=== PATIENT | female | born 1990 | race Caucasian/White ===

== ENCOUNTER → 2021-03-03 | Outpatient (CLI) | payer OTHER ==
--- NOTE | 2021-03-03 16:26 | RAD ---
Gastric Emptying Study Indication: Reason: REFLUX / Spl. Instructions: / History: Procedure: Anterior and posterior projection static images are obtained over the stomach following or al administration of 2 mCi of 99 M technetium sulfur colloid in a solid meal (egg, water, and toast). Time points include an immediate baseline, and 1, 2, 3, and 4 hours post ingestion. Findings: There is progressive emptying of the stomach on sequential images. Percentage retention at one hour is 80% (normal 34.8-91%). Two hours 63% (normal 2.7-60%). Three hours 40% (normal 0.5-28%). Four hours 13% (normal 0-10%). The calculated T1/2 of emptying is 150 minutes. 45-90 minutes is considered normal. IMPRESSION: There is moderate delayed gastric emptying. Electronically signed by: Edvin Jarvis MD (03/03/2021 4:23 PM) [id number]
== END ==
LOC: NM 09:20
PROVIDERS: ATTEND Internal Medicine Gastroenterology
DX: K21.9 Gastro-esophageal reflux disease without esophagitis (principal)
CPT/HCPCS: 78264; A9541

== ENCOUNTER 2021-07-06 19:16 | Emergency (ER) | payer OTHER ==
[~2021-07-06] VITALS: Ht 162.6 cm; Wt 62.7 kg
[2021-07-06] MEDS ORDERED: DEXAMETHASONE 4 MG TABLET PO ONE (19:45)
[2021-07-06] MEDS ORDERED: diphenhydrAMINE 50 MG/ML VIAL IVP ONE (20:00)
[2021-07-06] MEDS ORDERED: DEXAMETHASONE SOD PHOS 20 MG/5 ML VIAL. IV ONE (20:00)
[2021-07-06] MEDS ORDERED: FAMOTIDINE 20 MG/2 ML VIAL IVP ONE (20:00)
--- NOTE | 2021-07-06 20:09 | PHYS DOC ---
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 Reports she has been having "allergic reactions" ever since she received her Covid vaccination in October 2020. Took 4 puffs of her albuterol inhaler. Takes daily pepcid and xyzal. Was too frightened to use her EpiPen today, that her inserting machine operator at [facility] in [place] prescribed her. EMS did not recommend any epinephrine, gave benadryl. States she has similar reactions every 2 weeks after taking prednisone. Has a follow-up appointment with her inserting machine operator on the . Reports "I see so many ologists, I have to look up the allergists' name." Reports no associated head or neck swelling, drooling, strid or or sore throat. States she has never had any history of head or neck swelling, has never required any epinephrine or hospital admission for her allergic reactions. Reports rash has almost fully resolved and reports no current chest tightness/asthma flare up. Review of Systems: Review of Systems: Constitutional: Denies fever or chills. [] Eyes: Denies change in visual acuity. [] HENT: Denies nasal congestion or sore throat. [] Respiratory: Denies cough or shortness of breath. [] Cardiovascular: Denies chest pressure or heaviness, syncope or edema. [] GI: Denies abdominal pain, nausea, vomiting, bloody stools or diarrhea. [] : Denies dysuria or vaginal bleeding Musculoskeletal: Denies back pain or joint pain. [] Integument: Denies diaphoresis or desquamation Neurologic: Denies headache, neck stiffness, focal weakness or sensory changes. [] Endocrine: Denies polyuria or polydipsia. [] Lymphatic: Denies swollen glands. [] Psychiatric: Denies depression or anxiety. [] Heart Score: C/O Chest Pain: No Risk Factors: Risk Factors: DM, Current or recent (<one month) smoker, HTN, HLP, family history of CAD, obesity. Risk Scores: Score 0 - 3: 2.5% MACE over next 6 weeks - Discharge Home Score 4 - 6: 20.3% MACE over next 6 weeks - Admit for Clinical Observation Score 7 - 10: 72.7% MACE over next 6 weeks - Early Invasive Strategies Current Medications: Current Medications Medications (Trade) Dose Ordered Sig/Natividad Start Time Stop Time Status Last Admin Dose Admin Dexamethasone (Decadron) 10 mg 1X ONCE 07/06/21 19:45 07/06/21 19:48 DC Dexamethasone Sodium Phosphate (Decadron) 10 mg 1X ONCE 07/06/21 20:00 07/06/21 20:01 DC Diphenhydramine HCl (Benadryl) 25 mg 1X ONCE 07/06/21 20:00 07/06/21 20:01 DC Famotidine (Pepcid Vial) 20 mg 1X ONCE 07/06/21 20:00 07/06/21 20:01 DC Allergies: Allergies: Allergies Coded Allergies Type Severity Reaction Last Updated Verified meperidine Allergy Severe RESPIRATORY ISSUES 07/06/21 Yes Iodinated Contrast Media Allergy Intermediate 07/06/21 Yes aspirin Allergy Intermediate BRUISING 07/06/21 Yes gallium Allergy Intermediate 07/06/21 Yes Sulfa (Sulfonamide Antibiotics) Allergy Unknown HIVES 07/06/21 Yes amoxicillin Allergy Unknown HIVES 07/06/21 Yes Uncoded Allergies Type Severity Reaction Last Updated Verified MRI CONTRAST Adverse Reaction Severe BRONCHI SPASMS FLUID 07/06/21 Physical Exam: PE: Constitutional: Well developed, well nourished, no acute distress, non-toxic appearance. HENT: Normocephalic, atraumatic, no oropharyngeal edema Eyes: EOMI, conjunctiva normal, no discharge. Neck: Normal range of motion, supple, Cardiovascular: S1/2 present, regular rhythm Lungs & Thorax: Speaking in full sentences, bilateral equal chest rise, no tachypnea or increased work of breathing, no drooling/stridor Abdomen: soft, no tenderness, Skin: Warm, dry, no obvious urticarial rash - some prickly erythema over upper chest Extremities: No tenderness, no cyanosis, Neurologic: Alert and oriented X 3, normal motor function, normal sensory function, no focal deficits noted. [] Psychologic: Affect normal, judgement normal, mood normal. [] Current Patient Data: Vital Signs: Vital Signs Date Time Temp Pulse Resp B/P (MAP) Pulse Ox O2 Delivery O2 Flow Rate FiO2 07/06/21 19:25 97.8 96 22 145/87 96 97.8 EKG: EKG: [] Radiology/Procedures: Radiology/Procedures: [] Course & Med Decision Making: Course & Med Decision Making Pertinent Labs and Imaging studies reviewed. (See chart for details) Concern for mild allergic reaction with minimal rash in ED, protecting her airway with no head or neck swelling. Patient was observed in the ED with no exacerbation of her symptoms. On repeat exam, prickly erythema over upper chest is gone (appears like a sandpaper rash). No urticaria. Pt with auvi-q in ed and can demonstrate how to use it. Patient reports she does not need any refills of her Flovent or albuterol inhaler. Will prescribe 4 more days of steroids. Will discharge home with strict ED return precautions were given for head or neck swelling, drooling, stridor, difficulties breathing or worsening rash. Enco uraged urgent outpatient follow-up with PMD and pulmonology and allergy/immunology. Life-threatening processes were considered but are low suspicion at this time, given history, physical exam and ED workup. Pt was educated on all prescription medications and adverse effects. All patient's questions were answered and pt was stable at time of discharge. Life/limb-threatening differential includes but is not limited to, anaphylaxis, angioedema, shock, contrast induced allergic reaction, carcinoid syndrome, head/neck infection/sepsis, asthma exacerbation, or airway emergency. I have spoken with the patient and/or caregivers. I explained the patient's condition, diagnoses and treatment plan based on the information available to me at this time. I have answered the patient and/or caregiver's questions and addressed any concerns. The patient and/or caregivers have a good understanding of patient's diagnosis, condition and treatment plan as can be expected at this point. Vital signs have been stable. Patient's condition is stable and appropriate for discharge from the emergency department. Patient will pursue further outpatient evaluation with primary care physician or other designated or consulting physician as outlined in the discharge instructions. The patient and/or caregivers are agreeable to this plan of care and follow-up instructions have been explained in detail. The patient and/or caregivers have received these instructions in written form and have expressed an understanding of the discharge instructions. The patient and/or caregivers are aware that any significant change of condition or worsening of symptoms should prompt immediate return to this or the closest emergency department or call to 1Grayson Colón Disclaimer: [place] Disclaimer: This electronic medical record was generated, in whole or in part, using a voice recognition dictation system. Departure Departure Impression: Primary Impression: Allergic reaction Disposition: HOME / SELF CARE / HOMELESS Condition: STABLE Referrals: SNEHA GRULLON APRN (PCP) Follow-up with your primary care physician in 24 to 48 hours OR FOLLOW UP WITH FAMILY MEDICINE: [address] [place] [address] Patient Instructions: Anaphylactic Reaction, Hives Additional Instructions: [facility] - for definitive management [facility] Call for appointment [phone] [facility] on the [facility] [address] [place] [address], [address] (Address for directions and navigation systems: [address] [place] [address]) FOLLOW UP WITH PULMONOLOGY: FOR DEFINITIVE MANAGEMENT [facility] [address] [place] [address] EMERGENCY DEPARTMENT GENERAL DISCHARGE INSTRUCTIONS Thank you for coming to [facility] Emergency Department (ED) today and trusting us with you care. We trust that you had a positive experience in our Emergency Department. If you wish to speak to the department management, you may call the Director at [phone]. YOUR FOLLOW UP INSTRUCTIONS ARE FOLLOWS: 1. Do you have a private Doctor? If you do not have a private doctor, please ask for a resource list of physicians or clinics that may be able to assist you with follow up care. 2. The Emergency Physicain has interpreted your x-rays. The X-Ray specialist will also review them. If there is a change in the findings, you will be notified in 48 hours when at all possible. 3. A lab test or culture has been done, your results will be reviewed and you will be notified if you need a change in treatment. ADDITIONAL INSTRUCTIONS AND INFORMATION: 1. Your care today has been supervised by a physician who is specially trained in emergency care. Many problems require more than one evaluation for a complete diagnosis and treatment. We recommend that you schedule your follow up appointment as recommended to ensure complete treatment of you illness or injury. If you are unable to obtain follow up care and continue to have a problem, or if your condition worsens, we recommend that you return to the ED. 2. We are not able to safely determine your condition over the phone nor are we able to give sound medical advice over the phone. For these safety reasons, if you call for medical advice we will ask you to come to the ED for further evaluation. 3. If you have any questions regarding these discharge instructions please call the ED at [phone]. SAFETY INFORMATION: In the interest of safety, wellness, and injury prevention; we encourage you to wear your sealbelt, if you smoke; quite smoking, and we encourage family to use a protective helmet for bicycling and other sporting events that present an increased risk for head injury. IF YOUR SYMPTOMS WORSEN OR NEW SYMPTOMS DEVELOP, OR YOU HAVE CONCERNS ABOUT YOUR CONDITION; OR IF YOUR CONDITION WORSENS WHILE YOU ARE WAITING FOR YOUR FOLLOW UP APPOINTMENT; EITHER CONTACT YOUR PRIMARY CARE DOCTOR, THE PHYSICIAN WHOSE NAME AND NUMBER YOU WERE GIVEN, OR RETURN TO THE ED IMMEDIATELY. Scripts Prednisone (PREDNISONE) 20 Mg Tablet 2 TAB PO DAILY, #4 TAB Prov: CHRISTEN GUEVARA DO 07/06/21 CHRISTEN GUEVARA DO Jul 06, 2021 20:09
[2021-07-06] MEDS ORDERED: PRED20TA PO (22:21)
[2021-07-06 22:35] VITALS: BP 133/77
== END 2021-07-06 22:40 | disposition home or self-care (01) ==
LOC: ER 19:16
DX: T78.40XA Allergy, unspecified, initial encounter (principal); Z88.1 Allergy status to other antibiotic agents; Z88.2 Allergy status to sulfonamides; Z91.041 Radiographic dye allergy status; Z88.8 Allergy status to other drugs, medicaments and biological substances
CPT/HCPCS: 82962; 96374; 96375; 99285; J1100; J1200; J3490

== ENCOUNTER 2021-08-24 20:15 | Emergency (ER) | payer OTHER ==
[~2021-08-24] VITALS: Ht 162.6 cm; Wt 62.0 kg
[~2021-08-24 20:15] MED LIST: PRED20TA PO
[2021-08-24] MEDS ORDERED: ACETAMINOPHEN 325 MG TABLET. PO ONE (23:45)
--- NOTE | 2021-08-25 00:01 | PHYS DOC ---
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, CHIARI MALFORMA Past Surgical History: Cholecystectomy, Other Additional Past Surgical Histo: EAR TUBES, BONE TUMOR, LEFT EAR DRUM, LASER INNER EAR, CHIARI MALFOR, PIT T Smoking Status: Never Smoker Alcohol Use: Occasionally General Adult EDM: Chief Complaint: LOWER EXT PAIN HPI: HPI: 30-year-old female past medical history of celiac disease, Arnold-Chiari malformation and prediabetes presents to the ED with complaints of right thigh pain described as "cramping," that has been intermittent for the past week and a half, stating she may have injured it at the gym but does not recall any blunt trauma or abuse. Patient had an unremarkable stress test at [facility] on 08/21. Is requesting IM Toradol. Patient denies any fluid losses, known nausea, vomiting or diarrhea. Is concerned for a blood clot in her leg given because she is on control. States she bruises easily because she takes childrens ibuprofen, 15mg every 6 hours. Reports dark stools but denies any melena, hematochezia, leg swelling, hemoptysis, chest pain or dyspnea. Review of Systems: Review of Systems: Constitutional: Denies fever or chills. [] Eyes: Denies change in visual acuity. [] HENT: Denies nasal congestion or sore throat. [] Respiratory: Denies cough or shortness of breath or hemoptysis Cardiovascular: Denies chest pain or edema. [] GI: Denies abdominal pain, nausea, vomiting, bloody stools or diarrhea. [] : Denies dysuria or vaginal bleeding Musculoskeletal: Denies back pain or joint swelling/warmth Integument: Denies rash or diaphoresis Neurologic: Denies headache, focal weakness or sensory changes. [] Endocrine: Denies polyuria or polydipsia. [] Lymphatic: Denies swollen glands. [] Psychiatric: Denies depression or anxiety. [] Heart Score: C/O Chest Pain: No Risk Factors: Risk Factors: DM, Current or recent (<one month) smoker, HTN, HLP, family history of CAD, obesity. Risk Scores: Score 0 - 3: 2.5% MACE over next 6 weeks - Discharge Home Score 4 - 6: 20.3% MACE over next 6 weeks - Admit for Clinical Observation Score 7 - 10: 72.7% MACE over next 6 weeks - Early Invasive Strategies Current Medications: Current Medications Medications (Trade) Dose Ordered Sig/Natividad Start Time Stop Time Status Last Admin Dose Admin Acetaminophen (Tylenol) 650 mg 1X ONCE 08/24/21 23:45 08/24/21 23:46 DC Allergies: Allergies: Allergies Coded Allergies Type Severity Reaction Last Updated Verified Gadolinium-Containing Contrast Medi Allergy Severe BRONCHOSPASM 08/24/21 Yes meperidine Allergy Severe RESPIRATORY ISSUES 07/06/21 Yes Iodinated Contrast Media Allergy Intermediate 07/06/21 Yes Sulfa (Sulfonamide Antibiotics) Allergy Intermediate HIVES 08/24/21 Yes amoxicillin Allergy Intermediate HIVES 08/24/21 Yes aspirin Allergy Intermediate BRUISING 07/06/21 Yes gallium Allergy Intermediate 07/06/21 Yes Physical Exam: PE: Constitutional: Well developed, well nourished, no acute distress, non-toxic appearance. HENT: Normocephalic, atraumatic, Eyes: EOMI, conjunctiva normal, no discharge. Neck: Normal range of motion, supple, Cardiovascular: S1/2 present, regular rhythm Lungs & Thorax: Speaking in full sentences, bilateral equal chest rise, no tachypnea or increased work of breathing Abdomen: soft, no tenderness, Skin: Warm, dry, no erythema, no rash. [] Extremities: No tenderness, no cyanosis, no unilateral lower extremity edema, normal right knee and right ankle exam with full range of motion, DP/PT pulses intact, no hip pain, multiple superficial bruises over patient's anterior lower extremities with yellow in coloration-denies any repeat blood trauma Neurologic: Alert and oriented X 3, normal motor function, normal sensory function, no focal deficits noted. [] Psychologic: Affect normal, judgement normal, mood normal. [] Current Patient Data: Labs: Laboratory Tests Test 08/24/21 22:28 POC Urine HCG, Qualitative Hcg negative (Negative) Vital Signs: Vital Signs Date Time Temp Pulse Resp B/P (MAP) Pulse Ox O2 Delivery O2 Flow Rate FiO2 08/24/21 22:47 98.4 70 16 159/105 (123) 100 Room Air 98.4 EKG: EKG: [] Radiology/Procedures: Radiology/Procedures: IMAGING REPORT Signed PATIENT: ASHKAN YANEZ EACCOUNT: [id number] : 1990 LOCATION: ER AGE: 30 SEX: F EXAM STATUS: REG ER ORD. PHYSICIAN: CHRISTEN GUEVARA DO REASON: right thigh cramping, r/o dvt on obcp PROCEDURE: VENOUS LOWER EXTREMITY RIGHT Examination: Right Lower Extremity Venous Doppler Ultrasound History: Right thigh cramping Comparison: None Procedure: Pena scale, color flow 2D and spectal waveform analysis images are obtained with and without compression in the area of the common femoral vein, superficial femoral vein - femoral vein junction, main femoral vein (superficial femoral vein) and popliteal vein. Veins of the proximal calf are also imaged. Findings: There is normal duplex flow, color flow and compressibility of all visualized vein segments. No evidence of deep venous thrombus is present. Impression: No evidence of DVT in the right lower extremity venous system. Electronically signed by: Estevan Hensley MD (08/25/2021 12:33 AM) [id number] DICTATED and SIGNED BY: ESTEVAN HENSLEY MD DATE: 08/25/21 [id number] 0 IMAGING REPORT Signed PATIENT: ASHKAN YANEZ EACCOUNT: [id number] : 1990 LOCATION: ER AGE: 30 SEX: F EXAM STATUS: DEP ER ORD. PHYSICIAN: CHRISTEN GUEVARA DO REASON: distal thigh pain 16 PROCEDURE: KNEE RIGHT 3V Examination: 2 views of the right femur and 3 views of the right knee HISTORY: History of thigh pain COMPARISON: None available FINDINGS: The right femoral head is within the acetabulum. The visualized femur grossly appears unremarkable. The alignment of the knee joint grossly appears unremarkable. There is no acute fracture or dislocation. IMPRESSION: 1. No acute osseous findings. Electronically signed by: Estevan Hensley MD (08/25/2021 6:48 AM) [id number] DICTATED and SIGNED BY: ESTEVAN HENSLEY MD DATE: 08/25/21 [id number] 0 Course & Med Decision Making: Course & Med Decision Making Pertinent Labs and Imaging studies reviewed. (See chart for details) Concern for right distal thigh pain with no external signs of trauma or deformity, no lateral leg swelling. X-rays did not reveal any obvious fracture. No lower extremity DVT on ultrasound on imaging. Labs with no signs of thrombocytopenia or anemia. Patient hemodynamically stable. Consider repeat ultrasound 1 week if symptoms persist. Bruising to the lower extremities appears old/chronic. Patient with no melena or hematochezia. Will discharge home with strict ED return precautions were given for chest pain, dyspnea, hemoptysis or unilateral leg swelling. Encouraged urgent outpatient follow-up with PMD. Life-threatening processes were considered but are low suspicion at this time, given history, physical exam and ED workup. Pt was educated on all prescription medications and adverse effects. All patient's questions were answered and pt was stable at time of discharge. Life/limb-threatening differential includes but is not limited to, trauma (fracture, dislocation, laceration, compartment syndrome, tendon or ligament injury), neurovascular injury or deficitcva/tia, infection (osteomyelitis, abscess, cellulitis, septic arthritis, necrotizing fasciitis), deep vein thrombosis, renal/cardiac/liver disease, medication adverse effect, lymphedema/anasarca, vascular insufficiency or malignancy, I have spoken with the patient and/or caregivers. I explained the patient's condition, diagnoses and treatment plan based on the information available to me at this time. I have answered the patient and/or caregiver's questions and addressed any concerns. The patient and/or caregivers have a good understanding of patient's diagnosis, condition and treatment plan as can be expected at this point. Vital signs have been stable. Patient's condition is stable and appropriate for discharge from the emergency department. Patient will pursue further outpatient evaluation with primary care physician or other designated or consulting physician as outlined in the discharge instruc tions. The patient and/or caregivers are agreeable to this plan of care and follow-up instructions have been explained in detail. The patient and/or caregivers have received these instructions in written form and have expressed an understanding of the discharge instructions. The patient and/or caregivers are aware that any significant change of condition or worsening of symptoms should prompt immediate return to this or the closest emergency department or call to 911. [place] Disclaimer: [place] Disclaimer: This electronic medical record was generated, in whole or in part, using a voice recognition dictation system. Departure Departure Impression: Primary Impression: Pain in right thigh Additional Impression: Superficial bruising of lower leg Disposition: HOME / SELF CARE / HOMELESS Condition: STABLE Referrals: SNEHA GRULLON APRN (PCP) Follow-up with your primary care physician in 24 to 48 hours OR FOLLOW UP WITH FAMILY MEDICINE: [address] [place] [address] Patient Instructions: Contusions-SportsMed, Musculoskeletal Pain Additional Instructions: EMERGENCY DEPARTMENT GENERAL DISCHARGE INSTRUCTIONS Thank you for coming to [facility] Emergency Department (ED) today and trusting us with you care. We trust that you had a positive experience in our Emergency Department. If you wish to speak to the department management, you may call the Director at [phone]. YOUR FOLLOW UP INSTRUCTIONS ARE FOLLOWS: 1. Do you have a private Doctor? If you do not have a private doctor, please ask for a resource list of physicians or clinics that may be able to assist you with follow up care. 2. The Emergency Physicain has interpreted your x-rays. The X-Ray specialist will also review them. If there is a change in the findings, you will be notified in 48 hours when at all possible. 3. A lab test or culture has been done, your results will be reviewed and you will be notified if you need a change in treatment. ADDITIONAL INSTRUCTIONS AND INFORMATION: 1. Your care today has been supervised by a physician who is specially trained in emergency care. Many problems require more than one evaluation for a complete diagnosis and treatment. We recommend that you schedule your follow up appointment as recomme nded to ensure complete treatment of you illness or injury. If you are unable to obtain follow up care and continue to have a problem, or if your condition worsens, we recommend that you return to the ED. 2. We are not able to safely determine your condition over the phone nor are we able to give sound medical advice over the phone. For these safety reasons, if you call for medical advice we will ask you to come to the ED for further evaluation. 3. If you have any questions regarding these discharge instructions please call the ED at [phone]. SAFETY INFORMATION: In the interest of safety, wellness, and injury prevention; we encourage you to wear your sealbelt, if you smoke; quite smoking, and we encourage family to use a protective helmet for bicycling and other sporting events that present an increased risk for head injury. IF YOUR SYMPTOMS WORSEN OR NEW SYMPTOMS DEVELOP, OR YOU HAVE CONCERNS ABOUT YOUR CONDITION; OR IF YOUR CONDITION WORSENS WHILE YOU ARE WAITING FOR YOUR FOLLOW UP APPOINTMENT; EITHER CONTACT YOUR PRIMARY CARE DOCTOR, THE PHYSICIAN WHOSE NAME AND NUMBER YOU WERE GIVEN, OR RETURN TO THE ED IMMEDIATELY. Scripts Cyclobenzaprine Hcl (CYCLOBENZAPRINE HCL) 10 Mg Tablet 1 TAB PO TID, #21 TAB Prov: CHRISTEN GUEVARA DO 08/25/21 CHRSITEN GUEVARA DO Aug 25, 2021 00:01
--- NOTE | 2021-08-25 00:35 | RAD ---
Examination: Right Lower Extremity Venous Doppler Ultrasound History: Right thigh cramping Comparison: None Procedure: Pena scale, color flow 2D and spectal waveform analysis images are obtained with and witho ut compression in the area of the common femoral vein, superficial femoral vein - femoral vein juncti on, main femoral vein (superficial femoral vein) and popliteal vein. Veins of the proximal calf are a lso imaged. Findings: There is normal duplex flow, color flow and compressibility of all visualized vein segments. No evide nce of deep venous thrombus is present. Impression: No evidence of DVT in the right lower extremity venous system. Electronically signed by: Estevan Hensley MD (08/25/2021 12:33 AM) [id number]
[2021-08-25 03:31] LABS: BASO % 1 % (0-3); EOS # 0.1 x10^3/uL (0.0-0.7); EOS % 3 % (0-3); HEMATOCRIT 38.4 % (36.0-47.0); HEMOGLOBIN 12.9 g/dL (12.0-15.5); LYMPH # 1.6 x10^3/uL (1.0-4.8); LYMPH % 31 % (24-48); MEAN CORPUSCULAR HEMOGLOBIN 29 pg (25-35); MEAN CORPUSCULAR HGB CONC 34 g/dL (31-37); MEAN CORPUSCULAR VOLUME 87 fL (79-100); MONO # 0.7 x10^3/uL (0.0-1.1); MONO % 13 % (0-9); NEUT # 2.8 x10^3/uL (1.8-7.7); NEUT % 53 % (31-73); PLATELET COUNT 283 x10^3/uL (140-400); RED BLOOD COUNT 4.41 x10^6/uL (3.50-5.40); RED CELL DISTRIBUTION WIDTH 14.2 % (11.5-14.5); WHITE BLOOD COUNT 5.2 x10^3/uL (4.0-11.0)
[2021-08-25 03:37] LABS: CALCIUM 8.9 mg/dL (8.5-10.1); GFR 64.7; POTASSIUM 3.7 mmol/L (3.5-5.1)
[2021-08-25 03:43] LABS: ALBUMIN 3.9 g/dL (3.4-5.0); ALBUMIN/GLOBULIN RATIO 1.2 (1.0-1.7); TOTAL BILIRUBIN 0.7 mg/dL (0.2-1.0); TOTAL PROTEIN 7.2 g/dL (6.4-8.2)
[2021-08-25] MEDS ORDERED: CYCL10TA19 PO (04:39)
[2021-08-25 04:40] VITALS: BP 141/92
--- NOTE | 2021-08-25 06:51 | RAD ---
Examination: 2 views of the right femur and 3 views of the right knee HISTORY: History of thigh pain COMPARISON: None available FINDINGS: The right femoral head is within the acetabulum. The visualized femur grossly appears unremarkable. T he alignment of the knee joint grossly appears unremarkable. There is no acute fracture or dislocatio n. IMPRESSION: 1. No acute osseous findings. Electronically signed by: Estevan Hensley MD (08/25/2021 6:48 AM) [id number]
== END 2021-08-25 04:50 | disposition home or self-care (01) ==
LOC: ER 20:15
DX: M25.561 Pain in right knee (principal); Z88.1 Allergy status to other antibiotic agents; S80.11XA Contusion of right lower leg, initial encounter; Z88.2 Allergy status to sulfonamides; Z88.6 Allergy status to analgesic agent; Z88.8 Allergy status to other drugs, medicaments and biological substances; Z91.041 Radiographic dye allergy status; X58.XXXA Exposure to other specified factors, initial encounter; Y93.89 Activity, other specified; Y92.89 Other specified places as the place of occurrence of the external cause; Y99.8 Other external cause status
CPT/HCPCS: 36415; 73552; 73562; 80053; 81025; 85025; 93971; 99285-25

== ENCOUNTER 2021-11-03 23:45 | Emergency (ER) | payer OTHER ==
[~2021-11-03 23:45] MED LIST changes: +CYCL10TA19 PO
== END 2021-11-04 02:44 | disposition left against medical advice (07) ==
LOC: ER 23:45
DX: T78.40XA Allergy, unspecified, initial encounter (principal); Z53.21 Procedure and treatment not carried out due to patient leaving prior to being seen by health care provider; X58.XXXA Exposure to other specified factors, initial encounter

== ENCOUNTER → 2022-03-10 | Outpatient (CLI) | payer OTHER ==
[~2022-03-10] MED LIST changes: +BARIUM SULFATE 40% (APPLE) 148 GM PWD. PO ONE
--- NOTE | 2022-03-10 14:44 | RAD ---
EXAM: Video swallow evaluation. HISTORY: Dysphagia. Choking sensation. TECHNIQUE: Fluoroscopic imaging was performed with a speech pathologist during the oral administratio n of barium contrast of varying consistencies. 0 fluoroscopic spot images were obtained. The total fl uoroscopy time was 1.7 minutes. COMPARISON: None. FINDINGS: There is intermittent trace penetration with thin barium consistency. No aspiration is seen . There is normal transit of contrast into the distal esophagus. IMPRESSION: Intermittent trace penetration with thin barium consistency. No aspiration. Given reporte d symptomatology, the patient may benefit from a barium swallow evaluation if not previously performe d. Electronically signed by: Rita Verma MD (03/10/2022 2:41 PM) [id number]
== END ==
LOC: RAD 14:45
PROVIDERS: ATTEND Internal Medicine Gastroenterology
DX: R13.19 Other dysphagia (principal)
CPT/HCPCS: 74230; 92611-GN